=== PATIENT | male | born 1975 | race Caucasian/White ===

== ENCOUNTER 2016-12-19 13:05 | Emergency (ER) | payer SELFPAY ==
[~2016-12-19] VITALS: Ht 177.8 cm; Wt 93.4 kg
[2016-12-19 13:10] VITALS: BP 162/95; PULSE 120; RESP 20; TEMP 98.2; O2SAT 98
[2016-12-19] MEDS ORDERED: LORazepam 2 MG/ML VIAL IV PUSH ONE (13:30)
--- NOTE | 2016-12-19 13:34 | PD ---
HPI Chief Complaint: Chest Pain Time Seen by Provider: 13:13 Travel History International Travel<30 days: No Contact w/Intl Traveler<30days: No Traveled to known affect area: No History of Present Illness HPI This 41-year-old male had a burning sensations in his arms and legs off and on throughout the day. He says he had some substernal pain that lasted about 5 seconds. He does not smoke. He has no history of hypertension and diabetes who is a family history of heart disease. He says the chest pain that he had lasted for about 5 seconds. He has not had any weakness. He does not smoke cigarettes. He has a history of sciatica which has been acting up and he has been taking 2000 mg of ibuprofen. The burning sensations he has her on the right and the left legs and the arms. This started this morning. [facility] Social History Tobacco Use: No Allergies-Medications (Allergen,Severity, Reaction): Coded Allergies: Morphine (Verified Allergy, Unknown, 12/19/16) Reported Meds & Prescriptions Reported Meds & Active Scripts Active Reported Ibuprofen 200 Mg Tab 2,000 Mg PO ONCE Ibuprofen 200 Mg Tab 2,000 Mg PO ONCE Review of Systems General / Constitutional: No: Fever, Chills Eyes: No: Diploplia, Blurred Vision HENT: No: Headaches, Vertigo Cardiovascular: Positive: Chest Pain or Discomfort Respiratory: No: Cough, Shortness of Breath Gastrointestinal: No: Vomiting Genitourinary: No: Urgency Musculoskeletal: No: Myalgias, Arthralgias Neurologic: Positive: Sensory Disturbance, No: Weakness Psychiatric: Positive: Anxiety Hematologic/Lymphatic: No: Easy Bruising Physical Exam Narrative GENERAL: Well-developed male SKIN: Warm and dry. HEAD: Atraumatic. Normocephalic. EYES: Pupils equal and round. No scleral icterus. No injection or drainage. ENT: No nasal bleeding or discharge. Mucous membranes pink and moist. NECK: Trachea midline. No JVD. CARDIOVASCULAR: Regular rate and rhythm. No murmur appreciated. RESPIRATORY: No accessory muscle use. Clear to auscultation. Breath sounds equal bilaterally. GASTROINTESTINAL: Abdomen soft, non-tender, nondistended. Hepatic and splenic margins not palpable. MUSCULOSKELETAL: No obvious deformities. No clubbing. No cyanosis. No edema. NEUROLOGICAL: Awake and alert. No obvious cranial nerve deficits. Motor grossly within normal limits. Normal speech. There are no sensory deficits. PSYCHIATRIC: Appropriate mood and affect; insight and judgment normal. Data Data Last Documented VS Vital Signs Date Time Temp Pulse Resp B/P Pulse Ox O2 Delivery O2 Flow Rate FiO2 12/19/16 14:32 104 18 151/78 98 Room Air 12/19/16 13:10 98.2 Orders Complete Blood Count With Diff (12/19/16 13:21) Basic Metabolic Panel (Bmp) (12/19/16 13:21) Troponin I (12/19/16 13:21) Lorazepam Inj (Ativan Inj) (12/19/16 13:30) Labs Laboratory Tests Test 12/19/16 13:15 White Blood Count 10.2 TH/MM3 Red Blood Count 5.19 MIL/MM3 Hemoglobin 14.9 GM/DL Hematocrit 43.5 % Mean Corpuscular Volume 83.9 FL Mean Corpuscular Hemoglobin 28.6 PG Mean Corpuscular Hemoglobin 34.1 % Concent Red Cell Distribution Width 12.1 % Platelet Count 274 TH/MM3 Mean Platelet Volume 8.1 FL Neutrophils (%) (Auto) 73.9 % Lymphocytes (%) (Auto) 18.2 % Monocytes (%) (Auto) 3.9 % Eosinophils (%) (Auto) 3.4 % Basophils (%) (Auto) 0.6 % Neutrophils # (Auto) 7.5 TH/MM3 Lymphocytes # (Auto) 1.9 TH/MM3 Monocytes # (Auto) 0.4 TH/MM3 Eosinophils # (Auto) 0.3 TH/MM3 Basophils # (Auto) 0.1 TH/MM3 CBC Comment DIFF FINAL Differential Comment Sodium Level 138 MEQ/L Potassium Level 3.5 MEQ/L Chloride Level 103 MEQ/L Carbon Dioxide Level 25.1 MEQ/L Anion Gap 10 MEQ/L Blood Urea Nitrogen 16 MG/DL Creatinine 1.20 MG/DL Estimat Glomerular Filtration 67 ML/MIN Rate Random Glucose 208 MG/DL Calcium Level 8.4 MG/DL Troponin I LESS THAN 0.02 NG/ML [facility] Medical Decision Making Medical Screen Exam Complete: Yes Emergency Medical Condition: Yes Medical Record Reviewed: Yes Differential Diagnosis Differential includes atypical chest pain, paresthesias, anxiety Narrative Course EKG and troponin are negative. Patient appears stable. He has paresthesias which are bilateral and come and go. His chest pain only lasted a few seconds. He will be released Diagnosis Primary Impression: Anxiety Disposition: 01 DISCHARGE HOME Condition: Stable Gregg Caceres MD Dec 19, 2016 13:34
[2016-12-19] MEDS ORDERED: IBUP200T2 PO (13:45)
[2016-12-19 13:54] LABS: AUTOMATED NEUTROPHIL # 7.5 TH/MM3 (1.8-7.7); BASOPHIL # 0.1 TH/MM3 (0-0.2); BASOPHIL % 0.6 % (0.0-2.0); EOSINOPHIL # 0.3 TH/MM3 (0-0.4); EOSINOPHIL % 3.4 % (0.0-4.0); HEMATOCRIT 43.5 % (39.0-51.0); HEMO FLAGS DIFF FINAL; LYMPH % 18.2 % (9.0-44.0); LYMPHOCYTE # 1.9 TH/MM3 (1.0-4.8); MEAN CELL VOLUME 83.9 FL (80.0-100.0); MEAN CORPUSCULAR HEMOGLOBIN 28.6 PG (27.0-34.0); MEAN CORPUSCULAR HGB CONC 34.1 % (32.0-36.0); MONO % 3.9 % (0.0-8.0); NEUT % 73.9 % (16.0-70.0); PLATELET COUNT 274 TH/MM3 (150-450); RED BLOOD COUNT 5.19 MIL/MM3 (4.50-5.90); RED CELL DISTRIBUTION WIDTH 12.1 % (11.6-17.2); WHITE BLOOD COUNT 10.2 TH/MM3 (4.0-11.0)
[2016-12-19 13:57] VITALS: BP 150/86; PULSE 104; RESP 18; O2SAT 99
[2016-12-19 14:01] LABS: CHLORIDE 103 MEQ/L (98-107); POTASSIUM 3.5 MEQ/L (3.5-5.1); SODIUM (NA) 138 MEQ/L (136-145)
[2016-12-19 14:04] LABS: ANION GAP 10 MEQ/L (5-15); BICARBONATE 25.1 MEQ/L (21.0-32.0); BLOOD UREA NITROGEN 16 MG/DL (7-18)
[2016-12-19 14:07] LABS: GLOMERULAR FILTRATION RATE 67 ML/MIN (>89)
[2016-12-19 14:32] VITALS: BP 151/78; PULSE 104; RESP 18; O2SAT 98
--- NOTE | 2016-12-20 12:32 | EKG ---
Date Performed: 12/19/2016 Time Performed: 13:07:36 PTAGE: 41 years EKG: Sinus tachycardia ST junctional depression is nonspecific Borderline ECG NO PREVIOUS TRACING DOCTOR: Ralph Ferrari Interpretating Date/Time 12/20/2016 12:30:03
== END 2016-12-19 14:49 | disposition home or self-care (01) ==
LOC: PHED 13:05
DX: F41.9 Anxiety disorder, unspecified (principal)
CPT/HCPCS: 80048; 84484; 85025; 93005; 96374; 99285; J2060